=== PATIENT | male | born 1985 | race Caucasian/White ===

== ENCOUNTER 2018-04-10 10:19 | Emergency (ER) | payer SELFPAY ==
[2018-04-10] MEDS ORDERED: DEXAMETHASONE 10 MG/ML VIAL ONE (10:58)
[2018-04-10] MEDS ORDERED: ONDANSETRON 4 MG/2 ML VIAL ONE (10:59)
[2018-04-10] MEDS ORDERED: HYDROMORPHONE HCL 1 MG/ML INJ ONE (10:59)
--- NOTE | 2018-04-10 11:34 | ER ---
Nurse's Notes [facility] Name: Gio Gonzalez Age: 32 yrs Sex: Male : 1985 Arrival Date: 04/10/2018 Time: 10:23 Bed 20 Private MD: Diagnosis: Lower Extremity Weakness;Lower Back Pain Presentation: 04/10 10:35 Presenting complaint: EMS states: pt with chronic back pain, multiple surgeries and tw2 herniated discs, has noticed passed 2 months it has gotten worse, today he stood up and fell, LE numbness. Transition of care: patient was not received from another setting of care. Onset of symptoms was April 10, 2018. Risk Assessment: Do you want to hurt yourself or someone else? Patient reports no desire to harm self or others. Initial Sepsis Screen: Does the patient meet any 2 criteria? No. Patient's initial sepsis screen is negative. Does the patient have a suspected source of infection? No. Patient's initial sepsis screen is negative. Care prior to arrival: None. 10:35 Method Of Arrival: EMS: [facility] tw2 10:35 Acuity: MARLENE 3 tw2 Historical: - Allergies: 10:37 No Known Allergies; tw2 - Home Meds: 10:37 Methadone Oral [Active]; tw2 - PMHx: 10:37 herniated discs; tw2 - PSHx: 10:37 None; tw2 - Immunization history:: Adult Immunizations. - Social history:: Smoking status: Patient/guardian denies using tobacco. - Ebola Screening: : Patient denies travel to an Ebola-affected area in the 21 days before illness onset. Screenin:37 Abuse screen: Denies threats or abuse. Nutritional screening: No deficits noted. tw2 Tuberculosis screening: No symptoms or risk factors identified. Fall Risk None identified. Assessment: 10:38 General: Appears uncomfortable, Behavior is calm, cooperative, drowsy, reports standing em up and fell, has chronic back problems, reports having lower extremity numbness. Pain: Complains of pain in lumbar area. Neuro: Level of Consciousness is awake, alert, obeys commands, Oriented to person, place, time, situation, Weakness in left in right leg(s) Numbness in right leg and left leg. Cardiovascular: Capillary refill < 3 seconds Patient's skin is warm and dry. Respiratory: Airway is patent Respiratory effort is even, unlabored, Respiratory pattern is regular, symmetrical. GI: Abdomen is flat. : No signs and/or symptoms were reported regarding the genitourinary system. EENT: No signs and/or symptoms were reported regarding the EENT system. Derm: Skin is intact, Skin is pink, warm \T\ dry. Musculoskeletal: Capillary refill < 3 seconds, Range of motion: limited in left ankle and right ankle. 10:50 Reassessment: Patient appears in no apparent distress at this time. I agree with above iw assessment by Hari Solis LVN. 11:39 Reassessment: Patient appears in no apparent distress at this time. Patient and/or em family updated on plan of care and expected duration. Pain level reassessed. Patient is alert, oriented x 3, equal unlabored respirations, skin warm/dry/pink. reports pain is 6/10 Patient states feeling better. 12:18 Reassessment: Patient appears in no apparent distress at this time. Patient and/or em family updated on plan of care and expected duration. Pain level reassessed. pt still unable to move LE, reports pain 7/10, provider notified. Vital Signs: 10:38 BP 125 / 87; Pulse 105; Resp 20; Temp 98.1; Pulse Ox 99% on R/A; Weight 122.47 kg; em Height 6 ft. 3 in. (190.50 cm); Pain 8/10; 11:30 BP 125 / 80; Pulse 101; Resp 18; Pulse Ox 97% on R/A; Pain 6/10; em 12:17 BP 133 / 85; Pulse 102; Resp 16; Pulse Ox 97% on R/A; Pain 7/10; em 13:30 BP 142 / 88; Pulse 101; Resp 16; Pulse Ox 100% on R/A; Pain 6/10; em 10:38 Body Mass Index 33.75 (122.47 kg, 190.50 cm) em ED Course: 10:23 Patient arrived in ED. tw2 10:24 Warren Cheung PA is PHCP. jmm 10:24 Kaden Kaye MD is Attending Physician. jmm 10:36 Triage completed. tw2 10:36 Arm band placed on. tw2 10:37 Hari Solis LVN is Primary Nurse. em 10:37 Placed in gown. Bed in low position. Call light in reach. Pulse ox on. NIBP on. tw2 10:50 Missed attempt(s): 22 gauge in right hand. Bleeding controlled, band aid applied, dh3 catheter tip intact. 10:55 Inserted saline lock: 20 gauge in right antecubital area, using aseptic technique. dh3 Blood collected. 13:40 No provider procedures requiring assistance completed. Patient transferred, IV remains em in place. Administered Medications: 10:51 CANCELLED (other medication used): morphine 4 mg IVP once [facility] 11:10 Drug: Zofran 4 mg Route: IVP; Site: right antecubital; iw 12:16 Follow up: Response: No adverse reaction em 11:10 Drug: Decadron - Dexamethasone 10 mg Route: IVP; Site: right antecubital; iw 12:17 Follow up: Response: No adverse reaction em 11:10 Drug: Dilaudid 1 mg Route: IVP; Site: right antecubital; iw 12:17 Follow up: Response: No adverse reaction; Pain is decreased em 12:40 Drug: fentaNYL (PF) 50 mcg Route: IVP; Site: right antecubital; iw 13:39 Follow up: Response: No adverse reaction; Pain is decreased em Outcome: 11:33 ER care complete, transfer ordered by . dian 13:40 Transferred by ground EMS to [facility], Transfer form completed. em X-rays sent w/ patient. 13:40 Condition: good 13:40 Instructed on the need for transfer, Demonstrated understanding of instructions. 13:41 Patient left the ED. em Signatures: Warren Cheung PA PA jmm Munoz, Edgar, SITE RELIABILITY ENGINEER SITE RELIABILITY ENGINEER em Mariana Eric, RN RN iw Madeline Choi, RN RN tw2 Radha Lopez 3
--- NOTE | 2018-04-10 11:34 | EDPHYS ---
Physician Documentation [facility] Name: Gio Gonzalez Age: 32 yrs Sex: Male : 1985 Arrival Date: 04/10/2018 Time: 10:23 Bed 20 Private MD: ED Physician Kaden Kaye HPI: 04/10 10:26 This 32 yrs old Male presents to ER via Unassigned with complaints of Back jmm Pain. 10:26 The patient presents with pain that is acute, that is chronic. The symptoms are located jmm in the low back. Onset: The symptoms/episode began/occurred gradually, 4 hour(s) ago. 10:33 This is a 32 year old male with a history of chronic back pain that presents to the ED jmm after collapsing approx 4 hours ago. The patient states that his legs are weak. Patient denies fecal incontinence or urinary retention. . Historical: - Allergies: 10:37 No Known Allergies; tw2 - Home Meds: 10:37 Methadone Oral [Active]; tw2 - PMHx: 10:37 herniated discs; tw2 - PSHx: 10:37 None; tw2 - Immunization history:: Adult Immunizations. - Social history:: Smoking status: Patient/guardian denies using tobacco. - Ebola Screening: : Patient denies travel to an Ebola-affected area in the 21 days before illness onset. ROS: 10:36 Constitutional: Negative for fever, chills, and weight loss, Cardiovascular: Negative jmm for chest pain, palpitations, and edema, Respiratory: Negative for shortness of breath, cough, wheezing, and pleuritic chest pain. 10:36 Back: Positive for Exam: 10:54 Head/Face: atraumatic. Chest/axilla: Normal chest wall appearance and motion. jmm Cardiovascular: Regular rate and rhythm. No edema appreciated Respiratory: Normal respirations, no respiratory distress appreciated 10:54 Constitutional: The patient appears alert, awake, anxious, uncomfortable. 10:54 Back: lower lumbar tenderness. 10:54 Musculoskeletal/extremity: decreased sensation noted to the feet bilaterally, patient is able to extend great toes bilaterally. . 10:54 Neuro: Orientation: is normal, Mentation: is normal, Memory: is normal, Extensor halluis longus intact bilaterally, decreased sensation noted to the dorsal surface of the feet bilaterally, full sensation is appreciated to the perineum area. Rectal tone is appreciated. . 10:54 Psych: Behavior/mood is pleasant, cooperative. Vital Signs: 10:38 BP 125 / 87; Pulse 105; Resp 20; Temp 98.1; Pulse Ox 99% on R/A; Weight 122.47 kg; em Height 6 ft. 3 in. (190.50 cm); Pain 8/10; 11:30 BP 125 / 80; Pulse 101; Resp 18; Pulse Ox 97% on R/A; Pain 6/10; em 12:17 BP 133 / 85; Pulse 102; Resp 16; Pulse Ox 97% on R/A; Pain 7/10; em 13:30 BP 142 / 88; Pulse 101; Resp 16; Pulse Ox 100% on R/A; Pain 6/10; em 10:38 Body Mass Index 33.75 (122.47 kg, 190.50 cm) em MDM: 10:25 Patient medically screened. [facility] 11:03 Data reviewed: vital signs, nurses notes. [facility] 11:30 ED course: I discussed the patient with Dr. Naqvi whom accepted transfer. [facility] 04/10 10:34 Order name: IV Start; Complete Time: 10:56 tw2 Administered Medications: 10:51 CANCELLED (other medication used): morphine 4 mg IVP once [facility] 11:10 Drug: Zofran 4 mg Route: IVP; Site: right antecubital; iw 12:16 Follow up: Response: No adverse reaction em 11:10 Drug: Decadron - Dexamethasone 10 mg Route: IVP; Site: right antecubital; iw 12:17 Follow up: Response: No adverse reaction em 11:10 Drug: Dilaudid 1 mg Route: IVP; Site: right antecubital; iw 12:17 Follow up: Response: No adverse reaction; Pain is decreased em 12:40 Drug: fentaNYL (PF) 50 mcg Route: IVP; Site: right antecubital; iw 13:39 Follow up: Response: No adverse reaction; Pain is decreased em Disposition: 04/10/18 11:33 Transfer ordered to [facility]. Diagnosis are Lower Extremity Weakness, Lower Back Pain. - Reason for transfer: Higher level of care. - Accepting physician is Donya. - Condition is Stable. - Problem is new. - Symptoms are unchanged. Addendum: 04/12/2018 13:50 Co-signature as Attending Physician, Kaden Kaye MD I agree with the assessment and c escalante plan of care. Signatures: Kaden Kaye MD MD cha Mickail, Joel, PA PA jmm Munoz, Edgar, GROUP DYNAMICS INSTRUCTOR GROUP DYNAMICS INSTRUCTOR em Mariana Eric, RN RN iw Madeline Choi RN RN tw2 Corrections: (The following items were deleted from the chart) 04/10 10:51 10:27 morphine 4 mg IVP once ordered. [facility] dian 10:51 10:50 morphine 4 mg IVP once ordered. noelle rockwell 13:41 11:33 04/10/2018 11:33 Transfer ordered to [facility]. Diagnosis is em Lower Extremity Weakness; Lower Back Pain. Reason for transfer: Higher level of care. Accepting physician is Donya. Condition is Stable. Problem is new. Symptoms are unchanged. [facility]
[2018-04-10] MEDS ORDERED: FENTANYL CITR 100 MCG/2 ML ONE (12:37)
[2018-04-10 13:46] VITALS: TEMP 98.1
[2018-04-10 13:50] VITALS: BP 142/88; O2SAT 100
== END 2018-04-10 13:41 | disposition short-term general hospital (02) ==
LOC: ER 10:19 → SUPCPDRO 10:19 → ER 13:41
DX: M54.5 Low back pain (principal)
CPT/HCPCS: 96374; 96375; 99285; J1100; J1170; J2405; J3010